=== PATIENT | female | born 1990 | race Caucasian/White ===

== ENCOUNTER 2020-08-06 23:44 | Emergency (ER) | payer BC ==
--- NOTE | 2020-08-07 00:35 | EDM.PDOC ---
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 Shortly before coming in the patient had a couple episodes of bleeding she noticed a gush of blood with clots. This saturated her underwear and she had a fair amount in the toilet. She is not having significant discomfort with this. She is a 2 para 1 first went to 37 weeks. The mother has thrombocytopenia. She believes she is blood type O cannot recall if it is positive or negative. She denies any burning or frequency with urination no significant uterine or pelvic discomfort prior to the bleeding denies any vaginal discharge. 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 Denies: Fever, Chills Respiratory: Reports: No Symptoms Cardiovascular: Reports: No Symptoms GI/Abdominal: Reports: No Symptoms : Denies: Flank Pain, Frequency, Urgency Musculoskeletal: Reports: No Symptoms Skin: Reports: No Symptoms Neurological: Reports: No Symptoms ED EXAM - Physical Exam Exam: See Below Exam Limited By: No Limitations General Appearance: Alert, No Apparent Distress Head: Atraumatic, Normocephalic Neck: Normal Inspection, Supple, Non-Tender, Full Range of Motion Respiratory/Chest: No Respiratory Distress, Lungs Clear, Normal Breath Sounds Cardiovascular: Regular Rate, Rhythm, No Edema, No Murmur GI/Abdominal Exam: Normal Bowel Sounds, Soft, Non-Tender, Other (Fundal height U- 1) Heart Tones: Present Heart Tones per Min: 140 Back Exam: Normal Inspection. No: CVA Tenderness (L), CVA Tenderness (R) Course - Vital Signs Last Recorded V/S: Last Vital Signs Temp 36.6 C 08/07/20 00:04 Pulse 89 08/07/20 00:04 Resp 16 08/07/20 00:04 BP 129/70 08/07/20 00:04 Pulse Ox 98 08/07/20 00:04 - Orders/Labs/Meds Orders: Active Orders 24 hr Category Date Time Status OB Ltd 1 or More Fetus [US] Stat Exams 08/07/20 01:03 Taken Labs: Laboratory Tests 08/07/20 08/07/20 08/07/20 Range/Units 01:16 01:16 02:27 WBC 7.94 (3.98-10.04) K/mm3 RBC 3.66 L (3.98-5.22) M/mm3 Hgb 11.1 L (11.2-15.7) gm/dl Hct 33.5 L (34.1-44.9) % MCV 91.5 (79.4-94.8) fl MCH 30.3 (25.6-32.2) pg MCHC 33.1 (32.2-35.5) g/dl RDW Std Deviation 42.4 (36.4-46.3) fL Plt Count 87 L (182-369) K/mm3 MPV 12.5 H (9.4-12.3) fl Neut % (Auto) 75.5 H (34.0-71.1) % Lymph % (Auto) 18.3 L (19.3-51.7) % Collier % (Auto) 4.5 L (4.7-12.5) % Eos % (Auto) 1.1 (0.7-5.8) Baso % (Auto) 0.3 (0.1-1.2) % Neut # (Auto) 6.00 (1.56-6.13) K/mm3 Lymph # (Auto) 1.45 (1.18-3.74) K/mm3 Collier # (Auto) 0.36 (0.24-0.36) K/mm3 Eos # (Auto) 0.09 (0.04-0.36) K/mm3 Baso # (Auto) 0.02 (0.01-0.08) K/mm3 Manual Slide Review Abnormal smear Urine Color Yellow (Yellow) Urine Appearance Clear (Clear) Urine pH 7.0 (5.0-8.0) Ur Specific [place] 1.025 (1.005-1.030) Urine Protein Negative (Negative) Urine Glucose (UA) Negative (Negative) Urine Ketones Negative (Negative) Urine Occult Blood 3+ H (Negative) Urine Nitrite Negative (Negative) Urine Bilirubin Negative (Negative) Urine Urobilinogen 0.2 (0.2-1.0) Ur Leukocyte Esterase Negative (Negative) Urine RBC 10-20 H (0-5) /hpf Urine WBC 0-5 (0-5) /hpf Ur Squamous Epith Cells 0-5 (0-5) /hpf Urine Bacteria Rare (FEW) /hpf Urine Mucus Rare (FEW) /hpf Blood Type O POSITIVE Gel Antibody Screen Negative - Re-Assessments/Exams Free Text/Narrative Re-Assessment/Exam: 08/07/20 03:08 Urinalysis not suggestive of infectious process. Ultrasound was done which shows gestation at 18 weeks 3 days. It also shows a complete placenta previa previa without evidence of acute hemorrhage at this time. The evaluation is somewhat limited by her having continuous contractions throughout the exam. I did discuss this with Dr. 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 She states that these contractions are fairly common. At this point the patient will be discharged home no intercourse no strenuous activity and Dr. Regalado's office will call the patient in the morning for a follow-up appointment later today. Departure - Departure Time of Disposition: 03:11 Disposition: Home, Self-Care 01 Clinical Impression: Spotting complicating , second trimester, Placenta previa affecting delivery - Discharge Information Referrals: Cristy Regalado MD [Primary Care Provider] - Forms: ED Department Discharge Additional Instructions: Return to the emergency room with any questions problems or worsening symptoms. Expect some bleeding the blood should darken over the next several days but the bleeding should be gone by or Wednesday. If you develop significant bright red blood return to the emergency room.. You should be called by Dr. Regalado's office in the morning to schedule follow- up. No intercourse no strenuous activity no lifting over 10 pounds. Sepsis Event Note (ED) - Evaluation Sepsis Screening Result: No Definite Risk - Focused Exam Vital Signs: Vital Signs Temp Pulse Resp BP Pulse Ox 08/07/20 00:04 36.6 C 89 16 129/70 98 - My Orders Last 24 Hours: My Active Orders 08/07/20 01:03 OB Ltd 1 or More Fetus [US] Stat - Assessment/Plan Last 24 Hours: My Active Orders 08/07/20 01:03 OB Ltd 1 or More Fetus [US] Stat
--- NOTE | 2020-08-07 08:49 | US ---
PROCEDURE INFORMATION: Exam: US , Limited Exam date and time: 08/07/2020 1:44 AM Age: 29 years old Clinical indication: Lmp or gestational age (in weeks): ? ; Antepartum complications; Bleeding; TECHNIQUE: Imaging protocol: Real-time ultrasound of the maternal uterus with image documentation. Exam focused on the clinical indication. COMPARISON: No relevant prior studies available. FINDINGS: Gestation: Single living intrauterine gestation. Presentation: Mobile. Placenta: Anterior placenta. There is a complete placenta previa. Amniotic fluid index: 15.0 cm. BIOMETRY: Gestational age (AUA): 18 weeks 3 days. Estimated weight: 232 g. Biparietal diameter: 4.1 cm. Head circumference: 14.8 cm. Abdominal circumference: 12.9 cm. Femur length: 2.7 cm. MATERNAL: Cervix: Cervix is thick and closed measuring 4.5 cm. Urinary bladder: Maternal urinary bladder is unremarkable. IMPRESSION: 1. Single living intrauterine gestation. Estimated gestational age is 18 weeks 3 days. 2. Complete placenta previa. However evaluation is limited due to contractions occurring throughout the exam. Thank you for allowing us to participate in the care of your patient. Dictated and Authenticated by: Taiwo Turner MD 08/07/2020 3:24 AM Central Time ([place] & [place]) NATALIE
== END 2020-08-07 03:29 | disposition home or self-care (01) ==
LOC: JD.ED 23:44
DX: O26.852 Spotting complicating pregnancy, second trimester (principal); O44.02 Complete placenta previa NOS or without hemorrhage, second trimester; Z3A.18 18 weeks gestation of pregnancy
CPT/HCPCS: 36415; 76815; 76815-26; 81001; 85025; 86850; 86900; 86901; 99282; 99284-25

== ENCOUNTER 2020-12-30 07:02 | Inpatient (IN) | payer BC ==
[2020-12-30] MEDS ORDERED: Sodium Chloride 0.9% 10 ML Syringe FLUSH PRN (07:09)
[2020-12-30] MEDS ORDERED: Nalbuphine 10 MG/1 ML Vial IVPUSH PRN (07:09)
[2020-12-30] MEDS ORDERED: Ondansetron 4 MG/2 ML SDV IVPUSH PRN (07:09)
[2020-12-30] MEDS ORDERED: Oxytocin/Lactated Ringers 10 UNIT/1,000 ML BAG IV SCH ×2 (07:15→18:30)
[2020-12-30] MEDS ORDERED: Lactated Ringers 1,000 ML IV SCH (07:15)
--- NOTE | 2020-12-30 07:25 | PCM.LDHP ---
L&D History of Present Illness - General Date of Service: 12/30/20 Admit Problem/Dx: Patient Status Order with Admit Dx/Problem 12/30/20 07:10 Patient Status [ADT] Routine Admission Diagnosis/Problem Admission Diagnosis/Problem Normal in third trimester Source of Information: Patient History Limitations: Reports: No Limitations - History of Present Illness Introduction:: Patient is a 30 y/o at 39 0/7 wks who presents for elective IOL. Doing well today. Good FM. 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): Psychiatric History: Reports: Anxiety, Depression Hematologic History: Reports: Idiopathic Thrombocytopenia - Past Surgical History HEENT Surgical History: Reports: Oral Surgery, Tonsillectomy Other HEENT Surgeries/Procedures: wisdom teeth Social & Family History - Family History Family Medical History: No Pertinent Family History - Tobacco Use Tobacco Use Status *Q: Never Tobacco User - Caffeine Use Caffeine Use: Reports: None - Alcohol Use Alcohol Use History: No - Recreational Drug Use Recreational Drug Use: No H&P Review of Systems - Review of Systems: Review Of Systems: See Below General: Reports: No Symptoms Pulmonary: Reports: No Symptoms Cardiovascular: Reports: No Symptoms Gastrointestinal: Reports: No Symptoms Genitourinary: Reports: No Symptoms Musculoskeletal: Reports: No Symptoms Psychiatric: Reports: No Symptoms Neurological: Reports: No Symptoms L&D Exam - Exam Exam: See Below - OB Specific Contraction Intensity: Irritability Movement: Active Heart Tones: Present Heart Tones per Min: 140 Heart Rate (FHR) Variability: Moderate (6-25 bmp) Presentation: Vertex - Pearson Score Pearson Score Cervix Position: Posterior Pearson Score Consistency: Soft Pearson Score Effacement: 31-50% Pearson Score Dilation: 1-2 cm Pearson Score 's Station: -2 Pearson Score Total: 5 - Exam General: Alert, Oriented, Cooperative Lungs: Clear to Auscultation, Normal Respiratory Effort Cardiovascular: Regular Rate, Regular Rhythm GI/Abdominal Exam: Soft, Non-Tender Genitourinary: Normal external exam - Patient Data Result Diagrams: 12/30/20 07:24 - Problem List (1) 39 weeks gestation of SNOMED Code(s): 52435738 ICD Code: Z3A.39 - 39 WEEKS GESTATION OF Status: Acute Current Visit: Yes (2) Chronic ITP (idiopathic thrombocytopenia) SNOMED Code(s): 93506010 ICD Code: D69.3 - IMMUNE THROMBOCYTOPENIC PURPURA Status: Acute Current Visit: Yes (3) Thrombocytopenia affecting SNOMED Code(s): 865668816 ICD Code: O99.119 - OTH DIS OF BLD/BLD-FORM ORG/IMMUN MECHNSM COMP PREG,UNSP TRI; D69.6 - THROMBOCYTOPENIA, UNSPECIFIED Status: Acute Current Visit: No Problem List Initiated/Reviewed/Updated: Yes Orders Last 24hrs: Active Orders 24 hr Category Date Time Status Patient Status [ADT] Routine ADT 12/30/20 07:10 Active Activity as Tolerated [RC] PFP Care 12/30/20 07:10 Active Communication Order [RC] ASDIRECTED Care 12/30/20 07:10 Active Communication Order [RC] ASDIRECTED Care 12/30/20 07:10 Active Communication Order [RC] ASDIRECTED Care 12/30/20 07:10 Active Heart Tones [RC] ASDIRECTED Care 12/30/20 07:10 Active Non Stress Test [RC] PER UNIT ROUTINE Care 12/30/20 07:10 Active Notify Provider [RC] ASDIRECTED Care 12/30/20 07:10 Active Notify Provider [RC] PRN Care 12/30/20 07:10 Active Peripheral IV Care [RC] . DIRECTED Care 12/30/20 07:10 Active Up ad Libby [RC] ASDIRECTED Care 12/30/20 07:10 Active Vaginal Exam [RC] ASDIRECTED Care 12/30/20 07:10 Active Vital Signs [RC] ASDIRECTED Care 12/30/20 07:10 Active Regular Diet [DIET] Diet 12/30/20 Breakfast Active CBC W/O DIFF,HEMOGRAM [HEME] Stat Lab 12/30/20 07:09 Ordered CORONAVIRUS COVID-19 YULIANA [MOLEC] Stat Lab 12/30/20 07:12 Ordered RAPID PLASMA REAGIN,RPR [CHEM] Routine Lab 12/30/20 07:10 Ordered TYPE AND SCREEN [BBK] Stat Lab 12/30/20 07:09 Ordered Lactated Ringers [Ringers, Lactated] 1,000 ml Med 12/30/20 07:15 Active IV ASDIRECTED Nalbuphine [Nubain] Med 12/30/20 07:09 Active 10 mg IVPUSH Q2H PRN Ondansetron [Zofran] Med 12/30/20 07:09 Active 4 mg IVPUSH Q4H PRN Oxytocin/Lactated Ringers [Pitocin in LR 10 Units/1,000 Med 12/30/20 07:15 Active ML] 10 unit in 1,000 ml IV .CONTINUOUS Oxytocin/Lactated Ringers [Pitocin in LR 10 Units/1,000 Med 12/30/20 07:15 Active ML] 10 unit in 1,000 ml IV TITRATE Sodium Chloride 0.9% [Saline Flush] Med 12/30/20 07:09 Active 10 ml FLUSH ASDIRECTED PRN Electronic Heart Tones Ext w TOCO [WOMSER] Oth 12/30/20 07:10 Ordered Routine Electronic Heart Tones Internal [WOMSER] Per Unit Oth 12/30/20 07:10 Ordered Routine Peripheral IV Insertion Adult [OM.PC] Routine Oth 12/30/20 07:10 Ordered Resuscitation Status Routine Resus Stat 12/30/20 07:09 Ordered Medication Orders Oxytocin/Lactated Ringer's (Pitocin In Lr 10 Units/1,000 Ml) 10 unit in 1,000 mls @ 12 mls/hr IV TITRATE JACOBO; Protocol Oxytocin/Lactated Ringer's (Pitocin In Lr 10 Units/1,000 Ml) 10 unit in 1,000 mls @ 500 mls/hr IV .CONTINUOUS JACOBO Lactated Ringer's (Ringers, Lactated) 1,000 mls @ 40 mls/hr IV ASDIRECTED JACOBO Nalbuphine HCl (Nalbuphine 10 Mg/1 Ml Vial) 10 mg IVPUSH Q2H PRN PRN Reason: Pain Ondansetron HCl (Ondansetron 4 Mg/2 Ml Sdv) 4 mg IVPUSH Q4H PRN PRN Reason: Nausea/Vomiting Sodium Chloride (Sodium Chloride 0.9% 10 Ml Syringe) 10 ml FLUSH ASDIRECTED PRN PRN Reason: Keep Vein Open Assessment/Plan Comment:: Labs done and show plts of 86K. Ok to proceed with IOL. GBS negative, no need for antibiotics. Pitocin and AROM. Anticipate
[2020-12-30] MEDS ORDERED: diphenhydrAMINE 50 MG/ML SDV IVPUSH PRN (08:04)
[2020-12-30] MEDS ORDERED: ePHEDrine 50 MG/ML SDV IVPUSH PRN (08:04)
[2020-12-30] MEDS ORDERED: Bupivacaine/fentaNYL/NS 100 ML Bag EPIDUR PRN (08:04)
[2020-12-30] MEDS ORDERED: fentaNYL 100 MCG/2 ML SDV EPIDUR PRN (08:04)
[2020-12-30] MEDS: Oxytocin/Lactated Ringers 10 UNIT/1,000 ML BAG IV SCH ×2 (08:08→18:46)
--- NOTE | 2020-12-30 17:00 | PCM.PNLD ---
Labor Progress Note - VS & Meds Vital Signs: Last Vital Signs Temp 36.7 C 12/30/20 08:00 Pulse 110 H 12/30/20 08:00 Resp 16 12/30/20 08:00 BP 132/77 12/30/20 08:00 Pulse Ox 98 12/30/20 08:00 Active Medications: Current Medications Diphenhydramine HCl (Diphenhydramine 50 Mg/Ml Sdv) 25 mg IVPUSH Q6H PRN PRN Reason: pruritis Ephedrine Sulfate (Ephedrine 50 Mg/Ml Sdv) 5 mg IVPUSH ASDIRECTED PRN PRN Reason: Hypotension Fentanyl (Fentanyl 100 Mcg/2 Ml Sdv) 100 mcg EPIDUR Q3H PRN PRN Reason: Pain Fentanyl/Bupivacaine HCl (Bupivacaine/Fentanyl/Ns 100 Ml Bag) 100 ml EPIDUR ASDIRECTED PRN PRN Reason: Pain Oxytocin/Lactated Ringer's (Pitocin In Lr 10 Units/1,000 Ml) 10 unit in 1,000 mls @ 12 mls/hr IV TITRATE JACOBO; Protocol Last Titration: 12/30/20 15:23 Dose: 20 munits/min, 120 mls/hr Documented by: Oxytocin/Lactated Ringer's (Pitocin In Lr 10 Units/1,000 Ml) 10 unit in 1,000 mls @ 500 mls/hr IV .CONTINUOUS JACOBO Lactated Ringer's (Ringers, Lactated) 1,000 mls @ 40 mls/hr IV ASDIRECTED JACOBO Last Admin: 12/30/20 08:03 Dose: 40 mls/hr Documented by: Nalbuphine HCl (Nalbuphine 10 Mg/1 Ml Vial) 10 mg IVPUSH Q2H PRN PRN Reason: Pain Ondansetron HCl (Ondansetron 4 Mg/2 Ml Sdv) 4 mg IVPUSH Q4H PRN PRN Reason: Nausea/Vomiting Sodium Chloride (Sodium Chloride 0.9% 10 Ml Syringe) 10 ml FLUSH ASDIRECTED PRN PRN Reason: Keep Vein Open - Uterine Contractions Uterine Monitoring Mode: External [place] Contraction Intensity: Moderate Uterine Resting Tone: Soft - Monitoring Monitor Mode: External Ultrasound Heart Rate (FHR) Baseline: 135 Heart Rate (FHR) Variability: Moderate (6-25 bmp) Accelerations: Present, 15x15 Decelerations: Early Strip Review: Category I - Vaginal Exam Dilation (cm): 4 Effacement (Percent): 75 Station: 0 Cervical Position: Posterior - Labor Progress (Free Text) Labor Progress: Doing well. Pitocin at 20. Good change since AROM. Continue present management .
[2020-12-30] MEDS ORDERED: Misoprostol 200 MCG Tab ONE (20:00)
[2020-12-30] MEDS ORDERED: Misoprostol 200 MCG Tab PO STA (20:55)
--- NOTE | 2020-12-30 20:58 | PCM.DEL ---
L & D Note - General Info Date of Service: 12/30/20 - Delivery Note Labor: Induced by ARM, Induced by Oxytocin Delivery Outcome: Livebirth Infant Delivery Method: Spontaneous Vaginal Delivery-Single Infant Delivery Mode: Spontaneous Presentation: Left Occiput Anterior (JULIA) Nuchal Cord: Present (around arm ) Anesthesia Type: None Amniotic Fluid Description: Clear Episiotomy Type: None Laceration: 1st Degree Placenta: Intact, Spontaneous Cord: 3 Vessels Estimated Blood Loss: 200 Resuscitation Needed: Yes : Bulb Syringe, Stimulated, Warmed, [place] Used, Warmer Used Delivery Comments (Free Text/Narrative):: Patient found to be complete and began pushing. With maternal pushing effort f etal head delivered from JULIA presentation. No nuchal cord present. With gentle downward traction shoulders and body delivered. Infant placed on maternal abdomen. Cord clamped and cut. Cord blood obtained. Placenta allowed time to separate and expelled intact. Calcified. Inspection of perineum showed a small 1st degree which was hemostatic and so not repaired. Slight slow trickle of bleeding noted at end of delivery and so given 600 mcg of buccal cytotec with good response. - General Info Date of Service: 12/31/20 - Patient Data Vitals - Most Recent: Last Vital Signs Temp 36.7 C 12/30/20 08:00 Pulse 110 H 12/30/20 08:00 Resp 16 12/30/20 08:00 BP 132/77 12/30/20 08:00 Pulse Ox 98 12/30/20 08:00 Weight - Most Recent: 89.448 kg I&O - Last 24 Hours: Intake & Output 12/30/20 12/30/20 12/30/20 06:59 14:59 22:59 Intake Total 0 1000 Balance 0 1000 Lab Results Last 24 Hours: - Problem List & Annotations (1) 39 weeks gestation of SNOMED Code(s): 65171859 Code(s): Z3A.39 - 39 WEEKS GESTATION OF Status: Acute Current Visit: Yes (2) Chronic ITP (idiopathic thrombocytopenia) SNOMED Code(s): 46671687 Code(s): D69.3 - IMMUNE THROMBOCYTOPENIC PURPURA Status: Acute Current Visit: Yes (3) Thrombocytopenia affecting SNOMED Code(s): 230493601 Code(s): O99.119 - OTH DIS OF BLD/BLD-FORM ORG/IMMUN MECHNSM COMP PREG,UNSP TRI; D69.6 - THROMBOCYTOPENIA, UNSPECIFIED Status: Acute Current Visit: No (4) Vaginal delivery SNOMED Code(s): 015547819 Code(s): O80 - ENCOUNTER FOR FULL-TERM UNCOMPLICATED DELIVERY Status: Acute Current Visit: No - Problem List Review Problem List Initiated/Reviewed/Updated: Yes - My Orders Last 24 Hours: My Active Orders 12/30/20 Breakfast Regular Diet [DIET] 12/30/20 07:09 Nalbuphine [Nubain] 10 mg IVPUSH Q2H PRN Ondansetron [Zofran] 4 mg IVPUSH Q4H PRN Sodium Chloride 0.9% [Saline Flush] 10 ml FLUSH ASDIRECTED PRN Resuscitation Status Routine 12/30/20 07:10 Patient Status [ADT] Routine Activity as Tolerated [RC] PFP Communication Order [RC] ASDIRECTED Communication Order [RC] ASDIRECTED Communication Order [RC] ASDIRECTED Notify Provider [RC] ASDIRECTED Notify Provider [RC] PRN Peripheral IV Care [RC] . DIRECTED Up ad Libby [RC] ASDIRECTED Vital Signs [RC] ASDIRECTED Electronic Heart Tones Ext w TOCO [WOMSER] Routine Electronic Heart Tones Internal [WOMSER] Per Unit Routine Peripheral IV Insertion Adult [OM.PC] Routine 12/30/20 07:15 Lactated Ringers [Ringers, Lactated] 1,000 ml IV ASDIRECTED Oxytocin/Lactated Ringers [Pitocin in LR 10 Units/1,000 ML] 10 unit in 1,000 ml IV .CONTINUOUS Oxytocin/Lactated Ringers [Pitocin in LR 10 Units/1,000 ML] 10 unit in 1,000 ml IV TITRATE 12/30/20 07:24 RAPID PLASMA REAGIN,RPR [CHEM] Routine 12/30/20 18:30 Oxytocin/Lactated Ringers [Pitocin in LR 10 Units/1,000 ML] 10 unit in 1,000 ml IV TITRATE 12/30/20 20:56 Patient Status Manage Transfer [TRANSFER] Routine - Assessment Assessment:: PPD#0 - Plan Plan:: Routine cares Breast and bottle feeding Monitoring bleeding closely, CBC for Plt assessment in AM
[2020-12-30] MEDS ORDERED: Witch Hazel Medicated Pads 40/Jar TOP PRN (22:09)
[2020-12-30] MEDS ORDERED: Docusate Sodium 100 MG Cap PO PRN (22:09)
[2020-12-30] MEDS ORDERED: Benzocaine/Menthol 20%-0.5% Spray 56 GM Canister TOP PRN (22:09)
[2020-12-30] MEDS ORDERED: Ibuprofen 600 MG Tab PO PRN (22:09)
[2020-12-30] MEDS ORDERED: Methylergonovine 0.2 MG/1 ML Amp IM PRN (23:02)
[2020-12-30] MEDS ORDERED: Methylergonovine 0.2 MG/1 ML Amp ONE (23:04)
[2020-12-30] MEDS: fentaNYL 100 MCG/2 ML SDV IVPUSH ONE ×2 (23:40→23:58)
[2020-12-30] MEDS ORDERED: fentaNYL 100 MCG/2 ML SDV ONE (23:43)
[2020-12-30] MEDS ORDERED: Carboprost Tromethamine 250 MCG/1 ML Amp ONE (23:48)
[2020-12-30] MEDS ORDERED: Carboprost Tromethamine 250 MCG/1 ML Amp IM ONE (23:49)
[2020-12-31] MEDS ORDERED: Ondansetron 4 MG/2 ML SDV ONE (00:19)
--- NOTE | 2020-12-31 00:23 | PCM.SN.2 ---
- Free Text/Narrative Note: 2330\ Received call at 2300 that patient with larger blood loss/clot passage with fundal checks. RN weighing pads and estimates 400 since delivery. Asked to give 0.2 mg of IM Methergine and in to assess patient. On SVE patient with large amount of clot in RADHA which is manually extracted. When inspecting this concerns then there may be some small amounts of placental tissue in blood. Patient given total of 100 mcg of fentanyl and manual exploration done of uterine cavity. Rough surface of endometrium noted, but no discrete areas of retained placenta. Placenta also reinspected and no appreciable defects although placenta very calcified. Patient given tranexamic acid and also dose of 250 mcg IM hemabate to aid bleeding. 2nd liter of pitocin, 10 units, given. 2 grams of ancef given to cover manual exploration. Reassessed at 0130. Bleeding has been minimal. Had some more painful cramping with above medications and so given 2 tablets of percocet. Injection site reaction noted from either Methergine or Hemabate (given in same thigh). Patient with some concerns of throat swelling. Will give IV benadryl and consult anesthesia. Cristy Regalado MD
[2020-12-31] MEDS ORDERED: Acetaminophen/oxyCODONE 325-5 MG Tab PO ONE (00:51)
[2020-12-31] MEDS ORDERED: Acetaminophen/oxyCODONE 325-5 MG Tab ONE (00:52)
[2020-12-31] MEDS ORDERED: Ondansetron 4 MG/2 ML SDV IVPUSH PRN (00:57)
[2020-12-31] MEDS ORDERED: diphenhydrAMINE 50 MG/ML SDV ONE (01:13)
[2020-12-31] MEDS ORDERED: diphenhydrAMINE 50 MG/ML SDV IVPUSH PRN (01:20)
[2020-12-31] MEDS ORDERED: Sodium Chloride 0.9% Inhalation Soln 3 ML Neb INH PRN (01:45)
[2020-12-31] MEDS ORDERED: Racepinephrine 2.25% 0.5 ML Neb Soln NEB ONE ×2 (01:45→02:00)
--- NOTE | 2020-12-31 02:20 | PCM.SN.2 ---
- Free Text/Narrative Note: 0130 called in to assess airway. Patient sating 100% on room air C/O tightness in thought. Visual inspection of mouth grade III. Lung sounds are clear good air exchange. Teaching done. Patient expressed "I may have a little anxiety". Racemic epi treatment ordered through respiratory. Out of room at 0200
--- NOTE | 2020-12-31 07:09 | PCM.PNPP ---
- General Info Date of Service: 12/31/20 Functional Status: Reports: Pain Controlled, Tolerating Diet, Ambulating, Urinating - Review of Systems General: Reports: No Symptoms. Denies: Fatigue HEENT: Denies: Sore Throat Pulmonary: Reports: No Symptoms. Denies: Shortness of Breath Cardiovascular: Reports: No Symptoms Gastrointestinal: Reports: No Symptoms Genitourinary: Reports: No Symptoms - Patient Data Vital Signs - Most Recent: Last Vital Signs Temp 36.7 C 12/31/20 04:00 Pulse 103 H 12/31/20 04:41 Resp 16 12/30/20 08:00 BP 137/72 12/31/20 04:41 Pulse Ox 100 12/31/20 03:00 Weight - Most Recent: 89.448 kg I&O - Last 24 Hours: Intake & Output 12/30/20 12/31/20 12/31/20 22:59 06:59 14:59 Intake Total 1000 2650 Balance 1000 2650 Lab Results - Last 24 Hours: Laboratory Results - last 24 hr 12/30/20 12/30/20 12/30/20 Range/Units 07:24 07:24 07:24 WBC 9.00 (3.98-10.04) K/mm3 RBC 3.98 (3.98-5.22) M/mm3 Hgb 12.3 (11.2-15.7) gm/dl Hct 37.2 (34.1-44.9) % MCV 93.5 (79.4-94.8) fl MCH 30.9 (25.6-32.2) pg MCHC 33.1 (32.2-35.5) g/dl RDW Std Deviation 43.9 (36.4-46.3) fL Plt Count 86 L (182-369) K/mm3 MPV 11.9 (9.4-12.3) fl Neut % (Auto) (34.0-71.1) % Lymph % (Auto) (19.3-51.7) % [place] % (Auto) (4.7-12.5) % Eos % (Auto) (0.7-5.8) Baso % (Auto) (0.1-1.2) % Neut # (Auto) (1.56-6.13) K/mm3 Lymph # (Auto) (1.18-3.74) K/mm3 [place] # (Auto) (0.24-0.36) K/mm3 Eos # (Auto) (0.04-0.36) K/mm3 Baso # (Auto) (0.01-0.08) K/mm3 Manual Slide Review PT (9.7-12.0) SECONDS INR APTT (21.7-31.4) SECONDS RPR Non-reactive (NONREACTIVE) SARS-CoV-2 RNA (YULIANA) (NEGATIVE) Blood Type O POSITIVE Gel Antibody Screen Negative 12/30/20 12/31/20 12/31/20 Range/Units 08:00 00:10 00:10 WBC 18.46 H (3.98-10.04) K/mm3 RBC 3.60 L (3.98-5.22) M/mm3 Hgb 11.3 (11.2-15.7) gm/dl Hct 33.6 L (34.1-44.9) % MCV 93.3 (79.4-94.8) fl MCH 31.4 (25.6-32.2) pg MCHC 33.6 (32.2-35.5) g/dl RDW Std Deviation 43.2 (36.4-46.3) fL Plt Count 84 L (182-369) K/mm3 MPV 12.3 (9.4-12.3) fl Neut % (Auto) 91.2 H (34.0-71.1) % Lymph % (Auto) 4.9 L (19.3-51.7) % [place] % (Auto) 3.4 L (4.7-12.5) % Eos % (Auto) 0.1 L (0.7-5.8) Baso % (Auto) 0.1 (0.1-1.2) % Neut # (Auto) 16.86 H (1.56-6.13) K/mm3 Lymph # (Auto) 0.90 L (1.18-3.74) K/mm3 [place] # (Auto) 0.62 H (0.24-0.36) K/mm3 Eos # (Auto) 0.01 L (0.04-0.36) K/mm3 Baso # (Auto) 0.02 (0.01-0.08) K/mm3 Manual Slide Review Abnormal smear PT 10.2 (9.7-12.0) SECONDS INR 0.95 APTT 27.0 (21.7-31.4) SECONDS RPR (NONREACTIVE) SARS-CoV-2 RNA (YULIANA) Positive H (NEGATIVE) Blood Type Gel Antibody Screen Med Orders - Current: Current Medications Acetaminophen (Acetaminophen 325 Mg Tab) 650 mg PO Q4H PRN PRN Reason: mild pain or fever Benzocaine/Menthol (Benzocaine/Menthol 20%-0.5% [place] 56 Gm Canister) 0 gm TOP ASDIRECTED PRN PRN Reason: Perineal Comfort Measure Diphenhydramine HCl (Diphenhydramine 50 Mg/Ml Sdv) 25 mg IVPUSH Q6H PRN PRN Reason: Allergies Docusate Sodium (Docusate Sodium 100 Mg Cap) 100 mg PO BID PRN PRN Reason: Constipation Ibuprofen (Ibuprofen 600 Mg Tab) 600 mg PO Q6H PRN PRN Reason: Mild pain or fever Methylergonovine Maleate (Methylergonovine 0.2 Mg/1 Ml Amp) 0.2 mg IM Q4H PRN PRN Reason: Bleeding Last Admin: 12/30/20 23:19 Dose: 0.2 mg Documented by: Ondansetron HCl (Ondansetron 4 Mg/2 Ml Sdv) 4 mg IVPUSH Q8H PRN PRN Reason: Nausea Sodium Chloride (Sodium Chloride 0.9% Inhalation Soln 3 Ml Neb) 3 ml INH A SDIRECTED PRN PRN Reason: mix with racepinephrine neb Witch Martha (Witch Martha Medicated Pads 40/Jar) 1 pad TOP ASDIRECTED PRN PRN Reason: Perineal Comfort Measure Discontinued Medications Carboprost Tromethamine (Carboprost Tromethamine 250 Mcg/1 Ml Amp) 250 mcg IM ONETIME ONE Stop: 12/30/20 23:50 Last Admin: 12/31/20 00:00 Dose: 250 mcg Documented by: Carboprost Tromethamine (Carboprost Tromethamine 250 Mcg/1 Ml Amp) Confirm Administered Dose 250 mcg .ROUTE .STK-MED ONE Stop: 12/30/20 23:49 Last Admin: 12/31/20 03:59 Dose: Not Given Documented by: Diphenhydramine HCl (Diphenhydramine 50 Mg/Ml Sdv) 25 mg IVPUSH Q6H PRN PRN Reason: pruritis Last Admin: 12/31/20 01:16 Dose: 25 mg Documented by: Diphenhydramine HCl (Diphenhydramine 50 Mg/Ml Sdv) Confirm Administered Dose 50 mg .ROUTE .STK-MED ONE Stop: 12/31/20 01:14 Last Admin: 12/31/20 03:57 Dose: Not Given Documented by: Ephedrine Sulfate (Ephedrine 50 Mg/Ml Sdv) 5 mg IVPUSH ASDIRECTED PRN PRN Reason: Hypotension Fentanyl (Fentanyl 100 Mcg/2 Ml Sdv) 100 mcg EPIDUR Q3H PRN PRN Reason: Pain Fentanyl (Fentanyl 100 Mcg/2 Ml Sdv) Confirm Administered Dose 100 mcg .ROUTE .STK-MED ONE Stop: 12/30/20 23:44 Last Admin: 12/31/20 05:33 Dose: Not Given Documented by: Fentanyl (Fentanyl 100 Mcg/2 Ml Sdv) 100 mcg IVPUSH ONETIME ONE Stop: 12/31/20 00:24 Last Admin: 12/30/20 23:58 Dose: 50 mcg Documented by: Fentanyl/Bupivacaine HCl (Bupivacaine/Fentanyl/Ns 100 Ml Bag) 100 ml EPIDUR ASDIRECTED PRN PRN Reason: Pain Oxytocin/Lactated Ringer's (Pitocin In Lr 10 Units/1,000 Ml) 10 unit in 1,000 mls @ 12 mls/hr IV TITRATE JACOBO; Protocol Last Admin: 12/30/20 18:46 Dose: 22 munits/min, 132 mls/hr Documented by: Oxytocin/Lactated Ringer's (Pitocin In Lr 10 Units/1,000 Ml) 10 unit in 1,000 mls @ 500 mls/hr IV .CONTINUOUS JACOBO Lactated Ringer's (Ringers, Lactated) 1,000 mls @ 40 mls/hr IV ASDIRECTED JACOBO Last Admin: 12/30/20 08:03 Dose: 40 mls/hr Documented by: Oxytocin/Lactated Ringer's (Pitocin In Lr 10 Units/1,000 Ml) 10 unit in 1,000 mls @ 132 mls/hr IV TITRATE JACOBO; Protocol Cefazolin Sodium/Dextrose (Ancef 2 Gm/50 Ml) 50 mls @ 100 mls/hr IV ONETIME ONE Stop: 12/31/20 00:23 Last Admin: 12/31/20 00:23 Dose: 100 mls/hr Documented by: Methylergonovine Maleate (Methylergonovine 0.2 Mg/1 Ml Amp) Confirm Administered Dose 0.2 mg .ROUTE .STK-MED ONE Stop: 12/30/20 23:05 Last Admin: 12/31/20 05:34 Dose: Not Given Documented by: Misoprostol (Misoprostol 200 Mcg Tab) 600 mcg PO NOW STA Stop: 12/30/20 20:56 Last Admin: 12/31/20 05:34 Dose: 600 mcg Documented by: Nalbuphine HCl (Nalbuphine 10 Mg/1 Ml Vial) 10 mg IVPUSH Q2H PRN PRN Reason: Pain Last Admin: 12/30/20 19:22 Dose: 10 mg Documented by: Ondansetron HCl (Ondansetron 4 Mg/2 Ml Sdv) 4 mg IVPUSH Q4H PRN PRN Reason: Nausea/Vomiting Ondansetron HCl (Ondansetron 4 Mg/2 Ml Sdv) Confirm Administered Dose 4 mg .ROUTE .STK-MED ONE Stop: 12/31/20 00:20 Last Admin: 12/31/20 00:29 Dose: 4 mg Documented by: Oxycodone/Acetaminophen (Acetaminophen/Oxycodone 325-5 Mg Tab) 2 tab PO ONETIME ONE Stop: 12/31/20 00:52 Last Admin: 12/31/20 01:02 Dose: 2 tab Documented by: Oxycodone/Acetaminophen (Acetaminophen/Oxycodone 325-5 Mg Tab) Confirm Administered Dose 2 tab .ROUTE .STK-MED ONE Stop: 12/31/20 00:53 Last Admin: 12/31/20 03:57 Dose: Not Given Documented by: Racepinephrine (Racepinephrine 2.25% 0.5 Ml Neb Soln) 0.5 ml NEB ONETIME ONE Stop: 12/31/20 01:46 Last Admin: 12/31/20 02:02 Dose: 0.5 ml Documented by: Racepinephrine (Racepinephrine 2.25% 0.5 Ml Neb Soln) 0.5 ml NEB ONETIME ONE Stop: 12/31/20 02:01 Last Admin: 12/31/20 02:58 Dose: 0.5 ml Documented by: Sodium Chloride (Sodium Chloride 0.9% 10 Ml Syringe) 10 ml FLUSH ASDIRECTED PRN PRN Reason: Keep Vein Open Tranexamic Acid (Tranexamic Acid 1,000 Mg/10 Ml Amp) 1,000 mg IVPUSH ONETIME ONE Stop: 12/30/20 23:08 Last Admin: 12/30/20 23:48 Dose: 1,000 mg Documented by: - Interaction Infant Disposition, : in Room with Family Infant Interaction: Holding Feeding: Attempted ; Nursed Fair/Poor Support Person: - Recovery Exam Fundal Tone: Firm Fundal Level: 1 Fingerbreadths Below Umbilicus Lochia Amount: Small Lochia Color: Rubra/Red Bladder Status: Voiding Urinary Elimination: Voided - Exam General: Alert, Oriented, Cooperative GI/Abdominal Exam: Soft, Non-Tender - Problem List & Annotations (1) 39 weeks gestation of SNOMED Code(s): 32518538 Code(s): Z3A.39 - 39 WEEKS GESTATION OF Status: Acute Current Visit: Yes (2) Chronic ITP (idiopathic thrombocytopenia) SNOMED Code(s): 84697136 Code(s): D69.3 - IMMUNE THROMBOCYTOPENIC PURPURA Status: Acute Current Visit: Yes (3) Thrombocytopenia affecting SNOMED Code(s): 471791526 Code(s): O99.119 - OTH DIS OF BLD/BLD-FORM ORG/IMMUN MECHNSM COMP PREG,UNSP TRI; D69.6 - THROMBOCYTOPENIA, UNSPECIFIED Status: Acute Current Visit: No (4) Vaginal delivery SNOMED Code(s): 314968963 Code(s): O80 - ENCOUNTER FOR FULL-TERM UNCOMPLICATED DELIVERY Status: Acute Current Visit: No (5) Delayed hemorrhage, delivered, current hospitalization SNOMED Code(s): 00436548, 858783649 Code(s): O72.2 - DELAYED AND SECONDARY HEMORRHAGE Status: Acute Current Visit: Yes (6) Acute blood loss anemia SNOMED Code(s): 963677243 Code(s): D62 - ACUTE POSTHEMORRHAGIC ANEMIA Status: Acute Current Visit: Yes - Problem List Review Problem List Initiated/Reviewed/Updated: Yes - My Orders Last 24 Hours: My Active Orders 12/30/20 Breakfast Regular Diet [DIET] 12/30/20 07:09 Resuscitation Status Routine 12/30/20 22:09 Acetaminophen [TylenoL] 650 mg PO Q4H PRN Benzocaine/Menthol [Dermoplast Pain Relief [place]] See Dose Instructions TOP ASDIRECTED PRN Docusate Sodium [Colace] 100 mg PO BID PRN Ibuprofen [Motrin] 600 mg PO Q6H PRN witch Martha [Tucks] 1 pad TOP ASDIRECTED PRN Heat Therapy [OM.PC] PRN 12/30/20 22:09 Activity as Tolerated [RC] PER UNIT ROUTINE Vital Signs [RC] Q4HR Assess Lochia [WOMSER] Per Unit Routine Assess Uterine Involution [WOMSER] Per Unit Routine Breast Pump [WOMSER] Per Unit Routine Ice Therapy [OM.PC] Per Unit Routine Perineal Care [OM.PC] Per Unit Routine Peripheral IV Discontinue [OM.PC] Routine Sitz Bath [OM.PC] Per Unit Routine 12/30/20 23:02 Methylergonovine [Methergine] 0.2 mg IM Q4H PRN 12/31/20 00:57 Ondansetron [Zofran] 4 mg IVPUSH Q8H PRN 12/31/20 01:20 diphenhydrAMINE [Benadryl] 25 mg IVPUSH Q6H PRN 12/31/20 01:45 RT Aerosol Therapy [RC] ASDIRECTED Sodium Chloride 0.9% 3 ml INH ASDIRECTED PRN 12/31/20 22:09 Heat Therapy [OM.PC] PRN - Assessment Assessment:: PPD#1 - Plan Plan:: Routine cares Breast and bottle feeding Patient feeling improved since last night. Has had minimal bleeding. Repeat CBC this PM around 1500 No further respiratory concerns.
[2020-12-31] MEDS: Acetaminophen 325 MG Tab PO PRN ×2 (16:50→21:13)
[2021-01-01] MEDS: Acetaminophen 325 MG Tab PO PRN ×2 (02:51→09:55)
--- NOTE | 2021-01-01 06:51 | PCM.DCSUM1 ---
Discharge Summary - Discharge Data Discharge Date: 01/01/21 Discharge Disposition: Home, Self-Care 01 Condition: Good - Referral to Home Health Primary Care Physician: Cristy Regalado MD - Discharge Diagnosis/Problem(s) (1) 39 weeks gestation of SNOMED Code(s): 76778425 ICD Code: Z3A.39 - 39 WEEKS GESTATION OF Status: Acute Current Visit: Yes (2) Chronic ITP (idiopathic thrombocytopenia) SNOMED Code(s): 20068111 ICD Code: D69.3 - IMMUNE THROMBOCYTOPENIC PURPURA Status: Acute Current Visit: Yes (3) Thrombocytopenia affecting SNOMED Code(s): 928034165 ICD Code: O99.119 - OTH DIS OF BLD/BLD-FORM ORG/IMMUN MECHNSM COMP PREG,UNSP TRI; D69.6 - THROMBOCYTOPENIA, UNSPECIFIED Status: Acute Current Visit: No (4) Vaginal delivery SNOMED Code(s): 333637247 ICD Code: O80 - ENCOUNTER FOR FULL-TERM UNCOMPLICATED DELIVERY Status: Acute Current Visit: No (5) Delayed hemorrhage, delivered, current hospitalization SNOMED Code(s): 65466193, 371602429 ICD Code: O72.2 - DELAYED AND SECONDARY HEMORRHAGE Status: Acute Current Visit: Yes (6) Acute blood loss anemia SNOMED Code(s): 289628750 ICD Code: D62 - ACUTE POSTHEMORRHAGIC ANEMIA Status: Acute Current Visit: Yes - Patient Summary/Data Complications: None Consults: None Recommended Follow-up Testing/Procedures: Follow up in 3 weeks for check Hospital Course: 30 y/o presented at 39 0/7 wks for elective IOL. Induction done with pitocin and AROM. Progressed well and underwent an uncomplicated , however, about 3 hours after delivery had a delayed PPH. This required multiple uterotonic medications, manual exploration of uterine cavity, and tranexamic acid to control. See notes. did well after these interventions. Blood count with appropriate drop in Hb. Plts low, but stable c/w her known ITP. Was discharged home on PPD#2 - Patient Instructions Diet: Regular Diet as Tolerated Activity: As Tolerated Activity, Other: Pelvic rest for 6 weeks Driving: May Drive Today Showering/Bathing: May Shower Showering/Bathing, Other: May Bathe Notify Provider of: Fever, Increased Pain, Swelling and Redness, Drainage, Nausea and/or Vomiting - Discharge Plan *PRESCRIPTION DRUG MONITORING PROGRAM REVIEWED*: No *COPY OF PRESCRIPTION DRUG MONITORING REPORT IN PATIENT THI: No Home Medications: Home Meds PNV95/Ferrous Fumarate/FA [ Multivitamin Tablet] 1 tab PO DAILY 08/17/18 [History] Ferrous Sulfate [High Potency Iron] 1 tab PO DAILY 12/30/20 [History] Acetaminophen [Tylenol] 650 mg PO Q4H PRN tablet 12/31/20 [Rx] Docusate Sodium [Colace] 100 mg PO BID PRN cap 12/31/20 [Rx] Patient Handouts: Care After Vaginal Delivery Referrals: Cristy Regalado MD [Primary Care Provider] - - Discharge Summary/Plan Comment DC Time >30 min.: No - Patient Data Vitals - Most Recent: Last Vital Signs Temp 36.6 C 01/01/21 02:33 Pulse 80 01/01/21 02:33 Resp 14 01/01/21 02:33 BP 109/66 01/01/21 02:33 Pulse Ox 100 01/01/21 02:33 Weight - Most Recent: 89.448 kg I&O - Last 24 hours: Intake & Output 12/31/20 12/31/20 01/01/21 14:59 22:59 06:59 Intake Total 300 Balance 300 Lab Results - Last 24 hrs: Laboratory Results - last 24 hr 12/31/20 Range/Units 14:58 WBC 11.91 H (3.98-10.04) K/mm3 RBC 2.72 L (3.98-5.22) M/mm3 Hgb 8.5 L D (11.2-15.7) gm/dl Hct 25.9 L (34.1-44.9) % MCV 95.2 H (79.4-94.8) fl MCH 31.3 (25.6-32.2) pg MCHC 32.8 (32.2-35.5) g/dl RDW Std Deviation 43.6 (36.4-46.3) fL Plt Count 71 L (182-369) K/mm3 MPV 12.2 (9.4-12.3) fl Med Orders - Current: Current Medications Acetaminophen (Acetaminophen 325 Mg Tab) 650 mg PO Q4H PRN PRN Reason: mild pain or fever Last Admin: 01/01/21 02:51 Dose: 650 mg Documented by: Benzocaine/Menthol (Benzocaine/Menthol 20%-0.5% [place] 56 Gm Canister) 0 gm TOP ASDIRECTED PRN PRN Reason: Perineal Comfort Measure Diphenhydramine HCl (Diphenhydramine 50 Mg/Ml Sdv) 25 mg IVPUSH Q6H PRN PRN Reason: Allergies Docusate Sodium (Docusate Sodium 100 Mg Cap) 100 mg PO BID PRN PRN Reason: Constipation Ibuprofen (Ibuprofen 600 Mg Tab) 600 mg PO Q6H PRN PRN Reason: Mild pain or fever Methylergonovine Maleate (Methylergonovine 0.2 Mg/1 Ml Amp) 0.2 mg IM Q4H PRN PRN Reason: Bleeding Last Admin: 12/30/20 23:19 Dose: 0.2 mg Documented by: Ondansetron HCl (Ondansetron 4 Mg/2 Ml Sdv) 4 mg IVPUSH Q8H PRN PRN Reason: Nausea Sodium Chloride (Sodium Chloride 0.9% Inhalation Soln 3 Ml Neb) 3 ml INH ASDIRECTED PRN PRN Reason: mix with racepinephrine neb Witch Nneka (Witch Nneka Medicated Pads 40/Jar) 1 pad TOP ASDIRECTED PRN PRN Reason: Perineal Comfort Measure Discontinued Medications Carboprost Tromethamine (Carboprost Tromethamine 250 Mcg/1 Ml Amp) 250 mcg IM ONETIME ONE Stop: 12/30/20 23:50 Last Admin: 12/31/20 00:00 Dose: 250 mcg Documented by: Carboprost Tromethamine (Carboprost Tromethamine 250 Mcg/1 Ml Amp) Confirm Administered Dose 250 mcg .ROUTE .STK-MED ONE Stop: 12/30/20 23:49 Last Admin: 12/31/20 03:59 Dose: Not Given Documented by: Diphenhydramine HCl (Diphenhydramine 50 Mg/Ml Sdv) 25 mg IVPUSH Q6H PRN PRN Reason: pruritis Last Admin: 12/31/20 01:16 Dose: 25 mg Documented by: Diphenhydramine HCl (Diphenhydramine 50 Mg/Ml Sdv) Confirm Administered Dose 50 mg .ROUTE .STK-MED ONE Stop: 12/31/20 01:14 Last Admin: 12/31/20 03:57 Dose: Not Given Documented by: Ephedrine Sulfate (Ephedrine 50 Mg/Ml Sdv) 5 mg IVPUSH ASDIRECTED PRN PRN Reason: Hypotension Fentanyl (Fentanyl 100 Mcg/2 Ml Sdv) 100 mcg EPIDUR Q3H PRN PRN Reason: Pain Fentanyl (Fentanyl 100 Mcg/2 Ml Sdv) Confirm Administered Dose 100 mcg .ROUTE .STK-MED ONE Stop: 12/30/20 23:44 Last Admin: 12/31/20 05:33 Dose: Not Given Documented by: Fentanyl (Fentanyl 100 Mcg/2 Ml Sdv) 100 mcg IVPUSH ONETIME ONE Stop: 12/31/20 00:24 Last Admin: 12/30/20 23:58 Dose: 50 mcg Documented by: Fentanyl/Bupivacaine HCl (Bupivacaine/Fentanyl/Ns 100 Ml Bag) 100 ml EPIDUR ASDIRECTED PRN PRN Reason: Pain Oxytocin/Lactated Ringer's (Pitocin In Lr 10 Units/1,000 Ml) 10 unit in 1,000 mls @ 12 mls/hr IV TITRATE JACOBO; Protocol Last Admin: 12/30/20 18:46 Dose: 22 munits/min, 132 mls/hr Documented by: Oxytocin/Lactated Ringer's (Pitocin In Lr 10 Units/1,000 Ml) 10 unit in 1,000 mls @ 500 mls/hr IV .CONTINUOUS JACOBO Lactated Ringer's (Ringers, Lactated) 1,000 mls @ 40 mls/hr IV ASDIRECTED JACOBO Last Admin: 12/30/20 08:03 Dose: 40 mls/hr Documented by: Oxytocin/Lactated Ringer's (Pitocin In Lr 10 Units/1,000 Ml) 10 unit in 1,000 mls @ 132 mls/hr IV TITRATE JACOBO; Protocol Cefazolin Sodium/Dextrose (Ancef 2 Gm/50 Ml) 50 mls @ 100 mls/hr IV ONETIME ONE Stop: 12/31/20 00:23 Last Admin: 12/31/20 00:23 Dose: 100 mls/hr Documented by: Methylergonovine Maleate (Methylergonovine 0.2 Mg/1 Ml Amp) Confirm Administered Dose 0.2 mg .ROUTE .STK-MED ONE Stop: 12/30/20 23:05 Last Admin: 12/31/20 05:34 Dose: Not Given Documented by: Misoprostol (Misoprostol 200 Mcg Tab) 600 mcg PO NOW STA Stop: 12/30/20 20:56 Last Admin: 12/31/20 05:34 Dose: 600 mcg Documented by: Misoprostol (Misoprostol 200 Mcg Tab) 600 mcg .ROUTE .STK-MED ONE Stop: 12/30/20 20:01 Nalbuphine HCl (Nalbuphine 10 Mg/1 Ml Vial) 10 mg IVPUSH Q2H PRN PRN Reason: Pain Last Admin: 12/30/20 19:22 Dose: 10 mg Documented by: Ondansetron HCl (Ondansetron 4 Mg/2 Ml Sdv) 4 mg IVPUSH Q4H PRN PRN Reason: Nausea/Vomiting Ondansetron HCl (Ondansetron 4 Mg/2 Ml Sdv) Confirm Administered Dose 4 mg .ROUTE .STK-MED ONE Stop: 12/31/20 00:20 Last Admin: 12/31/20 00:29 Dose: 4 mg Documented by: Oxycodone/Acetaminophen (Acetaminophen/Oxycodone 325-5 Mg Tab) 2 tab PO ONETIME ONE Stop: 12/31/20 00:52 Last Admin: 12/31/20 01:02 Dose: 2 tab Documented by: Oxycodone/Acetaminophen (Acetaminophen/Oxycodone 325-5 Mg Tab) Confirm Administered Dose 2 tab .ROUTE .STK-MED ONE Stop: 12/31/20 00:53 Last Admin: 12/31/20 03:57 Dose: Not Given Documented by: Racepinephrine (Racepinephrine 2.25% 0.5 Ml Neb Soln) 0.5 ml NEB ONETIME ONE Stop: 12/31/20 01:46 Last Admin: 12/31/20 02:02 Dose: 0.5 ml Documented by: Racepinephrine (Racepinephrine 2.25% 0.5 Ml Neb Soln) 0.5 ml NEB ONETIME ONE Stop: 12/31/20 02:01 Last Admin: 12/31/20 02:58 Dose: 0.5 ml Documented by: Sodium Chloride (Sodium Chloride 0.9% 10 Ml Syringe) 10 ml FLUSH ASDIRECTED PRN PRN Reason: Keep Vein Open Tranexamic Acid (Tranexamic Acid 1,000 Mg/10 Ml Amp) 1,000 mg IVPUSH ONETIME ONE Stop: 12/30/20 23:08 Last Admin: 12/30/20 23:48 Dose: 1,000 mg Documented by:
== END 2021-01-01 16:40 | disposition home or self-care (01) | DRG 560 ==
LOC: JD.OB 07:02 → OBSVTOIN 20:42 → JD.OB 20:43
PROVIDERS: ADMIT Obstetrics & Gynecology; ATTEND Obstetrics & Gynecology
PROC: 10E0XZZ Delivery of Products of Conception, External Approach (ICD-10-PCS; principal; 2020-12-30)
PROC: 10907ZC Drainage of Amniotic Fluid, Therapeutic from Products of Conception, Via Natural or Artificial Opening (ICD-10-PCS; 2020-12-30)
PROC: 3E033VJ Introduction of Other Hormone into Peripheral Vein, Percutaneous Approach (ICD-10-PCS; 2020-12-30)
DX: O99.12 Other diseases of the blood and blood-forming organs and certain disorders involving the immune mechanism complicating childbirth (principal); D69.3 Immune thrombocytopenic purpura; O72.2 Delayed and secondary postpartum hemorrhage; O98.52 Other viral diseases complicating childbirth; U07.1 COVID-19; D62 Acute posthemorrhagic anemia; Z37.0 Single live birth; O70.0 First degree perineal laceration during delivery; Z3A.39 39 weeks gestation of pregnancy
CPT/HCPCS: 31500; 36415; 59025; 59409; 85025; 85027; 85610; 85730; 86592; 86850; 86900; 86901; 94640; A9270-GY; J0690; J1200; J2210; J2300; J2405; J2590; J3010; J7120; U0002